=== PATIENT | male | born 1950 | race Caucasian/White ===

== ENCOUNTER → 2016-07-23 | Outpatient (CLI) | payer BC ==
[~2016-07-23] MED LIST: AUGMENTIN875 MG PO; CARAFATE DPS1 GM PO; CARAFATE1 GM PO; COLACE-DPS100 MG PO; COMPAZINE10 MG PO; DEXAMETHASONE4 MG PO; DURAGESIC DPS25 MCG TD; DURAGESIC-1212 MCG TD; KLOR-CON M2020 ME1 PO; MIRALAX PACKET17 GM PO; NORCO 5-325 TA1 EACH PO; PHENERGAN W/COD30 ML PO; PREVACID30 M1 PO; PRILOSEC40 MG PO; PROAIR HFA8.5 GM IH; REGLAN-DPS10 MG PO; SENOKOT S1 TAB PO; TYLENOL DPS325 MG PO; VALTREX DPS1 GM PO; ZANTAC DPS150 MG PO; ZITHROMAX500 MG PO; ZOFRAN DPS8 MG PO; ZOFRAN ODT8 MG PO; ZOFRAN8 MG PO; ZOVIRAX400 MG PO
== END | disposition home or self-care (01) ==
LOC: RAD.S 10:30
DX: C16.8 Malignant neoplasm of overlapping sites of stomach (principal); C78.6 Secondary malignant neoplasm of retroperitoneum and peritoneum; E83.42 Hypomagnesemia

== ENCOUNTER 2016-08-28 02:40 | Emergency (ER) | payer BC | END 2016-08-28 03:10 | disposition left against medical advice (07) | LOC: ER 02:40 | DX: Z53.21 Procedure and treatment not carried out due to patient leaving prior to being seen by health care provider (principal) ==